=== PATIENT | female | born 1950 | race Caucasian/White ===

== ENCOUNTER → 2018-07-19 | Outpatient (REF) | payer MEDICARE, BC ==
[~2018-07-19] MED LIST: ALENDRONATE10 MG PO; ALENDRONATE70 MG PO; AMBIEN10 MG PO; CATAFLAM50 MG PO; CLARITIN-D1 TA2 PO; CLARITIN10 MG PO; FENOFIBRATE160 MG PO; FOSAMAX70 MG PO; LEVOTHYROXIN125 MC1 PO; LEVOTHYROXIN150 MC1 PO; LIPITOR10 MG PO; LIPITOR40 MG PO; METFORMIN500 M2 PO; OMEPRAZOLE40 MG PO; TRAZODONE50 MG PO; TRIGLIDE160 M1 PO; VITAMIN D31000 UNI1 OR; VITAMIN D35000 UNIT PO; XANAX1 MG PO; ZOLPIDEM10 M1 PO
== END | disposition home or self-care (01) ==
LOC: MAMMO 07:30
DX: Z12.31 Encounter for screening mammogram for malignant neoplasm of breast (principal)